=== PATIENT | male | born 1960 | race Caucasian/White ===

== ENCOUNTER → 2018-05-11 | Outpatient (CLI) | payer BC, OTHER ==
[~2018-05-11] VITALS: Ht 170.2 cm; Wt 105.7 kg
[~2018-05-11] MED LIST: ADVAIR 100-501 EACH INH; ASPIR 8181 MG PO; ASPIRIN325 PO; BENICAR HCT 401 EACH PO; COENZYME Q10100 MG PO; CRESTOR10 MG PO; DIOVAN HCT 1601 EACH PO; EFFIENT10 MG PO; FLONASE 0.05%50 MCG NASAL; IMDUR 30 MG TAB30 M1 PO; LUTEIN6 M1 PO; NAPROSYN500 MG PO; NITROGLYCERIN0.4 MG SUBLING; OMEPRAZOLE 20 M20 M1 PO; OMEPRAZOLE40 MG PO; PLAVIX 75 MG TA75 M1 PO; SIMVASTATIN40 MG PO; TYLENOL325 MG PO; VENTOLIN HFA 1818 GM INH
[2018-05-11 11:42] LABS: HEMATOCRIT 41.6 % (42.0-52.0); HEMOGLOBIN 14.3 gm/dL (14.0-18.0); MCHC 34.5 g/dL (28.0-37.0); MCV 95.7 fL (80.0-100.0); RBC 4.35 mil/uL (4.50-6.00); RDW 12.8 % (10.5-14.5); WBC 8.3 thou/uL (4.0-11.0)
[2018-05-11 11:48] LABS: CALCIUM 9.3 mg/dL (8.5-10.1)
[2018-05-11 11:50] VITALS: BP 117/76
--- NOTE | 2018-05-12 17:10 | CATHLAB ---
[facility] [address] [place] [address] INVASIVE PROCEDURE REPORT Name: JAIDEN WELCH Room #: REG [facility] [id number] Admission: 05/11/18 Attend Phys: Chris Archuleta Discharge: Date of : 58 Date of Service: 05/12/18 1710 Report #: [id number] THIS REPORT FOR: //name// APPROVED REPORT Study performed: 05/11/2018 12:53:28 Patient Details Patient Status: Out-Patient Room #: The patient is a 57 year-old male Event Personnel Chris Pang Timber Feller, Randy Lopez RN, Godwin Ren, Florence Duron RTR, RETAIL INVENTORY CONTROL CLERK Monitor Procedures Performed Art Access - R femoral artery* Left Heart Cath w/or w/o Coronaries [id number] [facility] [id number] Initial Mod Sed Same Phys/QHP 5y [id number] Hemostasis with Manual pressure, supervision of conscious sedation Indication Chest pain Procedure Narrative The Right Groin^ was infiltrated with 1% Lidocaine subcutaneous anesthesia. A PINNACLE 4FR Sheath #[id number] sheath was inserted into the RFA^. Coronary angiography was performed using coronary diagnostic catheters. The right coronary system was accessed and visualized with a JR4 catheter. The left coronary system was accessed and visualized with a JL4 catheter. Left ventricular/Aortic Valve gradient assessed via catheter pullback. Hemostasis was obtained with manual pressure following sheath removal without any complications. The patient tolerated the procedure well and there were no complications associated with the procedure. There was no hematoma. Intraoperative Conscious Sedation Sedation start time: 13:09 Case end Time: 13:44 Versed 2 mg Fluoro Time: 3.57 minutes Dose: DAP 5943.50 cGycm2 747 mGy Contrast Type and Amount: Omnipaque 65 ml [facility] [place] [address] INVASIVE PROCEDURE REPORT Name: JAIDEN WELCH Room #: REG [facility]#: [id number] Admission: 05/11/18 Attend Phys: Chris Archuleta Discharge: Date of : 58 Date of Service: 05/12/18 1710 Report #: [id number] Coronary Angiography The patient's coronary anatomy is right dominant. Diagnostic Cath Left Main Large-caliber vessel with mild distal tapering and luminal irregularities. Bifurcates into left anterior descending left circumflex. LAD Moderate caliber type III vessel which has a proximal LAD region of at least moderate stenosis. There is a portion that appears to be higher grade on the LA0 view in the proximal portion. Then continues on in the interventricular sulcus giving rise to septal and diagonal branches. Roxanol portion also appears to have some degree of ectasia Diagonal 1 Small-caliber vessel with luminal irregularities noted Circumflex Moderate caliber vessel arising from the left main with highly calcified proximal portion and at least 80% stenosis and a bifurcating origin between the circumflex proper and the first marginal branch. The vessels and continue on in the lateral aspect of the heart with luminal irregularities OM1 Small-caliber vessel bifurcating in its course proximal calcification and high-grade lesion OM2 Order caliber vessel with ostial lesion and heavily calcified with moderate diffuse irregularities in its course Right Coronary Large-caliber ectatic vessel of normal origin and has moderate luminal irregularities proximally. He continues to the crux of the heart where it gives rise to a smaller caliber posterior descending artery is diffusely diseased with several sections of high-grade lesions of greater than 75%. The posterior lateral branch has a 70% ostial lesion then reconstitutes proceeding in the posterolateral wall with luminal irregularities R PDA Small-caliber diffusely diseased vessel with several points strictures of greater than 75% Hemodynamics The aortic pressure is 135/80 mmHg with a mean of 103 mmHg. The left ventricular pressure is 132/16 mmHg with a mean of mmHg. The left ventricular end diastolic pressure is 23 mmHg. Conclusion 1. Coronary artery disease significant three-vessel 2. Abnormal hemodynamics with elevated left ventricular end-diastolic pressures Recommendations [facility] [address] [place] [address] INVASIVE PROCEDURE REPORT Name: JAIDEN WELCH Room #: REG CL Santosh#: [id number] Admission: 05/11/18 Attend Phys: Chris Archuleta Discharge: Date of : 58 Date of Service: 05/12/18 1710 Report #: [id number] Cardiac Risk Reduction Program Aggressive Medical Therapy CABG <ELECTRONICALLY SIGNED> By: Chris Pang MD 05/12/181709 09 09 Chris Pang MD /INF
== END | disposition home or self-care (01) ==
LOC: CATH 07:37
PROVIDERS: Internal Medicine
DX: I25.10 Atherosclerotic heart disease of native coronary artery without angina pectoris (principal); I10 Essential (primary) hypertension; K21.9 Gastro-esophageal reflux disease without esophagitis; E78.5 Hyperlipidemia, unspecified; Z88.0 Allergy status to penicillin; Z79.899 Other long term (current) drug therapy; Z79.82 Long term (current) use of aspirin; Z98.890 Other specified postprocedural states; Z90.49 Acquired absence of other specified parts of digestive tract; Z82.49 Family history of ischemic heart disease and other diseases of the circulatory system; Z95.5 Presence of coronary angioplasty implant and graft; Z87.891 Personal history of nicotine dependence